=== PATIENT | male | born 1960 | race Caucasian/White ===

== ENCOUNTER 2020-10-19 07:42 | Outpatient (RCR) | payer OTHER, SELFPAY ==
--- NOTE | 2020-10-19 07:50 | PTOPEVAL ---
Thank you for referring Eze Tejada to [facility].? The patient is scheduled to be seen for therapy? ____x/week for ___ weeks. Please review, sign, date and return this plan of care KALYANI. I agree with and certify that the following plan of care is medically necessary. Referring Physician Date Admitting Provider: Attending Provider: Vivian Garcia MD Referring Provider: *PT Outpatient Evaluation Start: 10/19/20 06:49 Freq: Status: Active Protocol: Document 10/19/20 06:51 ACR (Rec: 10/19/20 07:47 ACR [id number]) Therapy Assessment Status Assessment Status Assessment Status Evaluation Evaluation Information Problem Diagnosis LBP Onset 10/14/20 Subjective Information Patient states his back pain Query Text:As Reported By Patient/ was gradually getting worse Family and noticed it was the worse when he crossed his legs. He states that he was doing a lot of driving that increased pain. He states the pain felt like a lightening bolt and if he extended or laid down it would feel better. Bending over aggravates the spot. He states the pain is right on the PSIS region. He states the doctor gave him a steriod that has significantly decreased the pain but he has some soreness at the PSIS. Patient states he has not had radicular pain. He states that twisting in the sitting position caused the most pain. Patient states that there is something in his back but it is a dull ache if anything. Prior Level of Function Activity Level (Last 3 Months) Occupation retired Hand Dominance Right Activity of Daily Living Ability Independent Indoor/Home Mobility Independent Community Mobility Independent Stairs Ability Independent Functional Cognition (Planning, Shopping Independent , Taking Medications) Cooking Yes Cleaning Yes Laundry Yes Shopping Yes Driving Yes Pain Assessment Timing of Pain Assessment Timing of Pain Assessment Assessment Pain Scale Pain Scale Used
--- NOTE | 2020-10-26 07:20 | PCPTNOTE ---
Patient presented to skilled therapy for evaluation for back pain. He called and stated that he was feeling great and would like to be discharged from therapy at this time. Please refer to patient's evaluation for discharge status. Thank you, Estrella Dixon, PT, DPT
== END 2020-10-19 15:43 | disposition home or self-care (01) ==
LOC: CHSPT 07:42
PROVIDERS: PCP Internal Medicine; Visit Provider Internal Medicine
DX: M54.5 Low back pain (principal)
CPT/HCPCS: 97014; 97110; 97161; G0283

== ENCOUNTER 2021-09-16 14:52 | Outpatient (CLI) | payer OTHER, SELFPAY ==
--- NOTE | ~2021-09-16 | XR_ITS ---
XR knee RT 3V 09/16/2021 15:12 Indication: Right anterior knee pain after fall Procedure: 3 views right knee Comparison: No prior studies for comparison. Findings: There is mild tricompartment osteoarthritis. No fracture, subluxation or dislocation. No camilo int effusion. No foreign bodies. Impression: 1: Mild osteoarthritis of the right knee. Reviewed, dictated and finalized at location [facility]. Impression: 1: Mild osteoarthritis of the right knee.
== END 2021-09-16 14:53 | disposition home or self-care (01) ==
LOC: CHSIMG 14:53
PROVIDERS: PCP Internal Medicine; Visit Provider Internal Medicine
DX: M25.561 Pain in right knee (principal)
CPT/HCPCS: 73562

== ENCOUNTER 2022-09-22 09:58 | Outpatient (CLI) | payer OTHER, SELFPAY ==
--- NOTE | ~2022-09-22 | XR_ITS ---
Thoracic spine: Clinical Indication: Neck pain AP and lateral views were performed. No fracture is seen. There is normal alignment of the vertebrae. The intervertebral disc spaces appe ar normal. Paravertebral soft tissues appear normal. Impression: No significant abnormalities noted. Reviewed, dictated and finalized at [facility]. Impression: No significant abnormalities noted.
== END 2022-09-22 09:59 | disposition home or self-care (01) ==
LOC: CHSLAB 10:01
PROVIDERS: PCP Internal Medicine; Visit Provider Internal Medicine
DX: M54.50 Low back pain, unspecified (principal)
CPT/HCPCS: 72072

== ENCOUNTER 2022-09-27 07:48 | Outpatient (RCR) | payer OTHER, SELFPAY ==
--- NOTE | 2022-09-27 08:00 | PTOPEVAL1 ---
Assessment and note entered by Sindi Alex DPT Evaluation Information Assessment Status Evaluation Diagnosis mid back pain Onset 09/22/22 Subjective Information Patient reports that he has had mid back pain for about 5 years. He reports about 3 weeks ago pain intensified. He reports he went to the Chriopractor and got instant relief. He then went to the MD who did an x-ray which was negative. He does not recall an injury but states for work he was doing a lot climbing and reaching over head ( retired now). Patient reports pain is worse in the mornings and the evenings and increased pain with lifting and standing. He reports relief with walking. Reported Pain Level Pain Score 3: Self Report Assessment PT Clinical Summary Patient is a 61 year old male who presents to PT with mid back pain. Patient demonstrates impaired posture, decreased mobility at the thoracic spine and decreased strength of the mid and upper traps impairing his ability to lift, stand for prolonged periods and sleep. He would benefit from skilled PT to address impairments and return to PLOF. Plan of Care PT Services Indicated Yes Treatment Frequency and 2x/weekly for 10 visits Duration These treatments will address the objective and functional deficits as defined above. The patient will be advanced safely and appropriately in order for the patient to progress towards his/her prior level of function. Additional exercises will be introduced and as well as a comprehensive home exercise program upon discharge, if needed, ?to ensure carryover of functional gains achieved in the clinic. This treatment plan has been reviewed and agreement upon by the patient.
== END 2022-09-27 16:22 | disposition home or self-care (01) ==
LOC: CHSPT 07:48
PROVIDERS: PCP Internal Medicine; Visit Provider Internal Medicine
DX: M54.6 Pain in thoracic spine (principal)
CPT/HCPCS: 97110; 97140; 97161

== ENCOUNTER 2023-07-20 00:19 | Day surgery (SDC) | payer BC, SELFPAY ==
[2023-07-03 15:27] VITALS: BMI 32.1
--- NOTE | 2023-07-18 10:52 | SUR.PREOP ---
Patient called regarding upcoming procedure. Reviewed preop instructions, appointment times, and procedure prep.
[2023-07-20] MEDS: LACTATED RINGERS 1,000 ML 150 ML IV CONT (07:19)
[2023-07-20 07:21] VITALS: BP 155/97; PULSE 93; RESP 18; TEMP 36.1; O2SAT 96
--- NOTE | 2023-07-20 08:20 | PM.IMHP ---
H&P: HPI History of Present Illness Date/Time: 07/20/23 08:20 Chief Complaint: screening for colorectal cancer Narrative: this is a 62-year-old man who presents for colonoscopy. His last colonoscopy was 11 years ago. He denies any hematochezia or melena. He denies any family history of colon cancer. Review of Systems Review of Systems: All systems reviewed & are unremarkable except as noted in HPI and below Constitutional: Constitutional: Denies chills, Denies fever(s), Denies headache(s) and Denies weight loss Eyes: Eyes: Denies change in vision ENT: Denies dizziness, Denies headache(s), Denies neck mass and Denies throat swelling Cardiovascular: Cardiovascular: Denies chest pain, Denies lightheadedness and Denies dyspnea Respiratory: Respiratory: Denies cough, Denies dyspnea and Denies wheezing Gastrointestinal: Gastrointestinal: Denies abdominal pain, Denies change in bowel habits, Denies nausea and Denies vomiting Genitourinary: Genitourinary: Denies hematuria and Denies dysuria Musculoskeletal: Musculoskeletal: Reports as per HPI Integumentary/Breasts: Skin/Breast: Reports as per HPI Neurologic: Denies dizziness and Denies headache(s) Allergic/Immunologic: Allergic/Immunologic: Denies throat swelling and Denies wheezing [facility] Family History Family History (System 06/22/22 @ 12:55 by Lyle Loo) Father Acute myocardial infarction Mother Family history of malignant neoplasm Social History Social History (System 06/22/22 @ 12:55 by Lyle Loo) Years smoked: 10 Smoking status: Former smoker Tobacco type: cigarettes Alcohol intake: current Substance use: never Substance use type: does not use Living arrangements: with family Spiritual care concerns: No Meds Home Medications and Allergies Home Medications Medication Instructions Recorded Confirmed Type aspirin 81 mg tablet,delayed 81 mg PO DAILY 07/03/23 07/03/23 History release lovastatin 20 mg tablet 20 mg PO DAILY 07/03/23 07/03/23 History nadolol 40 mg tablet 40 mg PO DAILY 07/03/23 07/20/23 History Allergies Allergy/AdvReac Type Severity Reaction Status Date / Time No Known Allergies Allergy Verified 07/20/23 06:58 Vital Signs Vital Signs - 24 hr 07/20/23 07:21 Temperature 36.1 C L Pulse Rate 93 Respiratory Rate 18 Blood Pressure 155/97 H Pulse Oximetry 96 Oxygen Delivery Room Air Exam Const: General: no acute distress and alert Orientation/consciousness: patient oriented x3 HENMT: Head: normocephalic and atraumatic Ears: hearing grossly normal bilaterally Face/Nose/Sinus: Normal nares present Mouth: Yes Normal oral and palatal mucosa present Eyes: Periorbital: periorbital findings normal Sclera: sclerae normal EOM: EOMs intact bilaterally Neck: Neck: normal visual inspection, no lymphadenopathy and trachea midline Chest: Chest palpation & inspection: normal inspection of the chest Resp: Effort & Inspection: normal respiratory effort Auscultation: clear to auscultation bilaterally Cardio: Jugular venous distension: no JVD Rate: regular rate Rhythm: regular rhythm Heart sounds: S1 normal heart sound present and S2 normal heart sound present Peripheral pulses: Peripheral pulses 2+ throughout GI: Inspection: normal to inspection GI Palp: Yes Soft to palpation, No Tenderness to palpation present (GI), No Guarding due to palpation present (GI) and No Rebound tenderness present Percussion: Yes normal to percussion Auscultation: normal bowel sounds : General: Yes no CVA tenderness Back/Spine/Pelvis: Back: no CVA tenderness Neuro: General: patient oriented x3, no focal motor deficits and CN's II-XI intact bilaterally Cognition (Neuro): normal cognition Speech: normal speech Motor exam (neuro): 5/5 motor strength present throughout Extrem: General: capillary refill normal and no clubbing, cyanosis or edema Assessment and Plan Assessment and plan (1) Screening for
--- NOTE | 2023-07-20 08:27 | P.PNAN_ITS ---
Anes - Initial Pre Proc Eval Procedure: Operation Date: 07/20/23 08:30 Proposed Procedures p Screening Colonoscopy - Luke Carey DO Date/Time: 07/20/23 08:27 Surgeon: Luke Carey DO Pre Op Diagnosis: neoplasm screening Patient Data Age: 62 Gender: M Height: 1.88 m Weight: 114.8 kg Last Vital Signs Temp 97 F L 07/20/23 07:21 Pulse 93 07/20/23 07:21 Resp 18 07/20/23 07:21 BP 155/97 H 07/20/23 07:21 Pulse Ox 96 07/20/23 07:21 O2 Del Method Room Air 07/20/23 07:21 Allergies Allergy/AdvReac Type Severity Reaction Status Date / Time No Known Allergies Allergy Verified 07/20/23 06:58 Home Medications Medication Instructions Recorded Confirmed Type aspirin 81 mg tablet,delayed 81 mg PO DAILY 07/03/23 07/03/23 History release lovastatin 20 mg tablet 20 mg PO DAILY 07/03/23 07/03/23 History nadolol 40 mg tablet 40 mg PO DAILY 07/03/23 07/20/23 History Patient hx anesthesia problems: none Family hx anesthesia problems: none Results Review: All pre-operative results and documents have been reviewed as part of the pre- operative evaluation. [facility] Family History Family History (System 06/22/22 @ 12:55 by Lyle Loo) Father Acute myocardial infarction Mother Family history of malignant neoplasm Social History Social History (System 06/22/22 @ 12:55 by Lyle Loo) Years smoked: 10 Smoking status: Former smoker Tobacco type: cigarettes Alcohol intake: current Substance use: never Substance use type: does not use Living arrangements: with family Spiritual care concerns: No Anes - Eval Final PreProcedure Day of Procedure 07/20/23 08:27 Patient weight: obese Heart: regular rate and rhythm Lungs: clear to auscultation Airway: Mallampati scale class II Neurological: alert and oriented Last oral intake: >/= 8 hours ASA classification: III Emergent: no Anesthetic plan: proceed Anesthesia type and monitoring: general GIVS and standard monitoring Results Review: All pre-operative results and documents have been reviewed as part of the pre- operative evaluation. Informed Consent: The patient's anesthetic plan and its attendant risks and benefits were discussed with the patient/family/POA. Questions were solicited and answers provided to the satisfaction of the patient/family/POA.
[2023-07-20 09:23] VITALS: BP 99/64; PULSE 78; RESP 20; O2SAT 95
[2023-07-20 09:33] VITALS: BP 123/82; PULSE 83; RESP 23; O2SAT 96
[2023-07-20 09:43] VITALS: BP 118/81; PULSE 77; RESP 22; O2SAT 95
== END 2023-07-20 10:04 | disposition home or self-care (01) ==
PROVIDERS: PCP Internal Medicine; Visit Provider Surgery
PROC: 0DJD8ZZ Inspection of Lower Intestinal Tract, Via Natural or Artificial Opening Endoscopic (ICD-10-PCS; CPT 45378; principal; 2023-07-20 08:30)
DX: Z12.11 Encounter for screening for malignant neoplasm of colon (principal); D12.3 Benign neoplasm of transverse colon; E66.9 Obesity, unspecified; Z68.32 Body mass index [BMI] 32.0-32.9, adult; Z79.82 Long term (current) use of aspirin; Z87.891 Personal history of nicotine dependence; Z82.49 Family history of ischemic heart disease and other diseases of the circulatory system; Z80.9 Family history of malignant neoplasm, unspecified
CPT/HCPCS: 45380; 88305; J2001; J2704; J7120

== ENCOUNTER 2024-04-01 23:53 | Emergency (ER) | payer BC, SELFPAY ==
[2024-04-01 23:56] VITALS: BP 169/98; PULSE 83; RESP 16; TEMP 36.7; O2SAT 96
--- NOTE | 2024-04-02 00:11 | ED.EYEPROB ---
HPI - Eye Problem General Chief complaint: Eye Problems Stated complaint: left eye injury Time Seen by Provider: 04/02/24 00:10 Source: patient Mode of arrival: ambulatory Limitations: no limitations History of Present Illness HPI Narrative: 63 old white male noticed sudden appearance of flash of light at the lateral side of left visual field started around 3 p.m. questions about 9-10 hours ago. Worse at dark, mainly if he moves his eyes to 1 side. Patient described the flash of light like glips of crescent aggarwal. Patient denies any fever, chills, nausea, vomiting, headache, eye discharge , eye blinking or light sensitivity or redness or foreign body like sensation or blurry vision or floaters. 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 History of hypertension, hyperlipidemia currently on baby aspirin once a day, patient wearing glasses for long and short distance. Related Data Home Medications Medication Instructions Recorded Confirmed aspirin 81 mg tablet,delayed 81 mg PO DAILY 07/03/23 04/01/24 release lovastatin 20 mg tablet 20 mg PO DAILY 07/03/23 04/01/24 nadolol 40 mg tablet 40 mg PO DAILY 07/03/23 04/01/24 Allergies Allergy/AdvReac Type Severity Reaction Status Date / Time No Known Allergies Allergy Verified 07/20/23 06:58 Review of Systems Review of Systems: All systems reviewed & are unremarkable except as noted in HPI and below PMFSH Family History Family History Father Acute myocardial infarction Mother Family history of malignant neoplasm Social History Social History Years smoked: 10 Smoking status: Former smoker Tobacco type: cigarettes Alcohol intake: current Substance use: never Substance use type: does not use Living arrangements: with family Spiritual care concerns: No Exam Narrative: General appearance: Well-developed, well-nourished Skin: Normal color Head: Normocephalic, nontraumatic Eyes: Clear conjunctiva , no foreign body in the cornea or under the upper eyelid Neck: Supple, nontender Chest and respiratory: Airway patent, no respiratory distress, no accessory muscle use Heart: Regular rate/rhythm Neurologic: Alert and oriented ?3, FOUNTAIN PEN NIBS INSPECTOR is normal as tested, no gross motor deficit Course Consultations Consultation #1: DR SEAMAN , THE ACCOUNTING CLERK ON-CALL WHO REQUESTED TO SEND PATIENT TO THE ED Date: 04/02/24 Time: 01:31 Consultation #2: DR. JULIAN PINA ED PHYSICIAN AT [facility] WHO ACCEPTED PATIENT TO BE TRANSFERRED WHEN A BED AVAILABLE. Date: 04/02/24 Time: 01:31 Vital Signs Vital signs: Vital Signs Temperature 36.7 C 04/01/24 23:56 Pulse Rate 83 04/01/24 23:56 Respiratory Rate 16 04/01/24 23:56 Blood Pressure 169/98 H 04/01/24 23:56 Pulse Oximetry 96 04/01/24 23:56 Oxygen Delivery Room Air 04/01/24 23:56 Temperature 36.7 C 04/01/24 23:56 Pulse Rate 83 04/01/24 23:56 Respiratory Rate 16 04/01/24 23:56 Blood Pressure 169/98 H 04/01/24 23:56 Pulse Oximetry 96 04/01/24 23:56 Oxygen Delivery Room Air 04/01/24 23:56 Transfer Transfered to: [facility] MDM - Eye Problem MDM Narrative Medical decision making narrative: flash flight to left eye Differential diagnosis retinal tear or detachment Physical examination is unremarkable, visual acuity 20 /20 right, 20 /25 left, 20 /20 both Patient was accepted to be transferred to [facility]. Critical Care Time Critical Care Time
--- NOTE | 2024-04-02 01:20 | PC.NURSE ---
ERP spoke to pt about opthalmologist accepting him at [facility] but at this time they have no rooms in their ER. Discussed options for transfer w/ pt. and he has decided to stay here until a bed opens for him to go to [facility] ER.
[2024-04-02 01:45] VITALS: BP 142/97; PULSE 70; RESP 18; O2SAT 98
--- NOTE | 2024-04-02 01:46 | PC.NURSE ---
Lights dimmed, pt given warm blankets to rest until call received from [facility] for transfer. Call duenas at pt side.
--- NOTE | 2024-04-02 03:10 | PC.NURSE ---
Called Dr Bang and informed him about [facility] waitlist for pt and unable to accept at this time due to capacity. Advised to call other facilities for opthalmology transfer. Will try [facility].
--- NOTE | 2024-04-02 04:18 | PC.NURSE ---
Pt ambulatory to [facility] per self, no changes in vision noted at this time. Updated pt about transfer acceptance to ER at [facility], paperwork signed and EMS called.
[2024-04-02 04:20] VITALS: BP 148/88; PULSE 74; RESP 18; TEMP 36.6; O2SAT 96
[2024-04-02 04:50] VITALS: BP 146/88; PULSE 78; RESP 18; TEMP 36.6; O2SAT 98
== END 2024-04-02 04:50 | disposition short-term general hospital (02) ==
PROVIDERS: Emergency Provider Emergency Medicine; PCP Internal Medicine
DX: H53.19 Other subjective visual disturbances (principal); I10 Essential (primary) hypertension; E78.5 Hyperlipidemia, unspecified; Z79.82 Long term (current) use of aspirin; Z79.899 Other long term (current) drug therapy; Z87.891 Personal history of nicotine dependence
CPT/HCPCS: 99285

== ENCOUNTER 2024-05-28 13:36 | Outpatient (CLI) | payer BC, SELFPAY ==
--- NOTE | ~2024-05-28 | XR_ITS ---
Right Knee Technique: AP and lateral views were obtained. Clinical History: Pain Findings: No fracture or dislocation is seen. Osseous alignment is anatomic. Minimal degenerative spu rring noted, especially the patella and intercondylar notch. Soft tissues are unremarkable. No joint effusion is seen. Impression: Minimal degenerative spurring Reviewed, dictated and finalized at [facility]. ORK RELATIONS CONSULTANT Impression: Minimal degenerative spurring
== END 2024-05-28 13:37 | disposition home or self-care (01) ==
PROVIDERS: PCP Internal Medicine; Visit Provider Nurse Practitioner Family
DX: M25.561 Pain in right knee (principal)
CPT/HCPCS: 73562

== ENCOUNTER 2024-06-27 07:17 | Outpatient (CLI) | payer BC, SELFPAY ==
--- NOTE | ~2024-06-27 | MR_ITS ---
EXAMINATION: MR knee RT wo con DATE: 06/27/2024 08:19 INDICATION: Right knee pain TECHNIQUE: Magnetic resonance imaging (MRI) of the right knee was performed without intravenous contr ast. Sequences included coronal PD-weighted FSE, coronal PD-weighted FS FSE, sagittal T2-weighted FS E, sagittal PD-weighted FS FSE and axial PD weighted fat saturated FSE. COMPARISON: Right knee radiographs dated 05/28/2024 FINDINGS: Medial compartment: Complex medial meniscal tear with longitudinal horizontal tear plane extending to the inferior articu lar surface of the body and posterior horn. Additional radial component of the tear middle finger two thirds of the posterior horn. Small multilobulated para meniscal cyst along the periphery of the pos terior horn. Partial-thickness chondral ulceration and fissuring which appears to involve at least 50 % the cartilage thickness but without degenerative subchondral changes along the anterior weightbeari ng medial femoral condyle. Additional partial-thickness chondral ulceration and deep fissuring with t iny focus of subarticular edema-like signal change at the anterior and posterior margins of the media l tibial plateau. Lateral compartment: Longitudinal horizontal tear extending to the inferior articular surface near the free edge of the apurva dy of the lateral meniscus. Partial-thickness chondral ulceration and fissuring without degenerative subchondral changes at the posterior aspect lateral tibial plateau. Additional juxtaposed deep chondr al ulceration with underlying tiny central subchondral osteophyte at the central weightbearing latera l femoral condyle. Patellofemoral compartment: Thickness chondral ulceration without degenerative subchondral changes at the medial patellar facet. Small partial-thickness chondral fissure also without degenerative subchondral changes at the lateral patellar facet. Deep chondral ulceration with tiny foci of subarticular edema-like signal change at the inferior aspect of the medial trochlea and trochlear groove. Ligaments and tendons: Anterior and posterior cruciate ligaments are normal. The medial collateral ligament and fibular ricardo ateral ligament complex are normal. Mild tendinopathy at the proximal patellar tendon. Quadriceps ten don is normal. The visualized medial and lateral hamstring tendons as well as the iliotibial band are normal. Fluid: Minimal knee joint effusion. No loose osteochondral bodies identified. Osseous/other: Bone alignment is normal. No fracture or pathologic marrow replacing process. IMPRESSION: 1. Medial and lateral meniscal tears. 2. Mild osteoarthritis with regions of moderate and high-grade chondromalacia in all 3 compartments. Reviewed, dictated and finalized at location [facility]. WEB SERVICES DEVELOPER IMPRESSION: 1. Medial and lateral meniscal tears. 2. Mild osteoarthritis with regions of moderate and high-grade chondromalacia i n all 3 compartments.
== END 2024-06-27 07:18 | disposition home or self-care (01) ==
LOC: CHSIMG 07:20
PROVIDERS: PCP Internal Medicine; Visit Provider Nurse Practitioner Family
DX: M25.561 Pain in right knee (principal); S83.281A Other tear of lateral meniscus, current injury, right knee, initial encounter; S83.241A Other tear of medial meniscus, current injury, right knee, initial encounter; M17.11 Unilateral primary osteoarthritis, right knee; M94.261 Chondromalacia, right knee
CPT/HCPCS: 73721

== ENCOUNTER 2024-10-19 22:39 | Emergency (ER) | payer BC, SELFPAY ==
[2024-10-19 22:42] VITALS: BP 157/98; PULSE 76; RESP 18; TEMP 36.3; O2SAT 97
--- OUTSIDE RECORDS SUMMARY | 2024-10-19 22:42 | XMS_ITS | Referral Summary ---
Author Organization [facility] Address [address] [place] [address] Care Team Providers Care Leather Sprayer Name Role Phone Vivian Garcia MD Primary Care Provider + [phone] Allergies No known active allergies Medications No known medications Active Problems Problem Noted Date Diagnosed Date Posterior vitreous detachment of left eye 2023 Overview (04/10/2024): 63 y.o. male with PMHx of HTN and OHx of rust ring years ago, dry eyes, and myopia who presents as OSH ED transfer for flashes OS on 04/02/24. 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 Also with cortical spoking OS, though reporting flashes present even with eyes closed more c/w PVD. 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 Reviewed return precautions for flashes/floaters/VF cuts. RTC as below, if stable at next visit, may be able to return to follow-up with eye care provider he previously followed with at [facility] Social History Tobacco Use Types Packs/Day Years Used Date Smoking Tobacco: Never Assessed Personal Safety Answer Date Recorded Have you ever been in or are you currently in a harmful physical or emotional relationship or is someone making you feel afraid or unsafe? 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 Gender Identity Not on file Sexual Orientation Not on file Last Filed Vital Signs Vital Sign Reading Time Taken Comments Blood Pressure 137/74 04/02/2024 1:11 PM CDT Pulse 66 04/02/2024 1:11 PM CDT Temperature 37 C (98.6 F) 04/02/2024 1:11 PM CDT Respiratory Rate 16 04/02/2024 1:11 PM CDT Oxygen Saturation 99% 04/02/2024 1:11 PM CDT Inhaled Oxygen Concentration - - Weight 136.1 kg (300 lb) 04/02/2024 6:36 AM CDT Height - - Body Mass Index - - Plan of Treatment Not on file [place] Care Teams Leather Sprayer Relationship Specialty Start Date End Date Vivian Garcia MD [address] [place] [address] PCP - General Internal Medicine 04/02/24
--- OUTSIDE RECORDS SUMMARY | 2024-10-19 22:42 | XMS_ITS | Clinical Summary ---
Author Organization [facility] Address [address] [place] [address] Care Team Providers Care Nail Making Machine Setter Name Role Phone Vivian Garcia MD Primary Care Provider [phone] Luke Cuevas MD Unavailable [phone] Allergies No known active allergies Medications aspirin 81 MG tablet Take 1 tablet by mouth daily. 10/11/2010 Active lovastatin 20 MG tablet 09/27/2017 Active nadolol 40 MG tablet 10/09/2017 Active sildenafil 100 MG tablet 08/29/2017 Active Active Problems Problem Noted Date Diagnosed Date Palpitations 10/20/2017 PAC (premature atrial contraction) 10/20/2017 Family History Medical History Relation Comments [place] Father Relation Status Comments Father Social History Tobacco Use Types Packs/Day Years Used Date Smoking Tobacco: Former Smokeless Tobacco: Never Alcohol Use Standard Drinks/Week Comments No 0 (1 standard drink = 0.6 oz pur e alcohol) Sex and Gender Information Value Date Recorded Sex Assigned at Not on file Legal Sex Male 9:59 PM CDT Gender Identity Not on file Sexual Orientation Not on file Last Filed Vital Signs Vital Sign Reading Time Taken Comments Blood Pressure 118/78 12/04/2017 10:09 AM CDT Pulse 71 12/04/2017 10:09 AM CDT Temperature - - Respiratory Rate 18 12/04/2017 10:09 AM CDT Oxygen Saturation - - Inhaled Oxygen Concentration - - Weight 117 kg (258 lb) 12/04/2017 10:09 AM CDT Height 185.4 cm (6' 1 ) 12/04/2017 10:09 AM CDT Body Mass Index 34.04 12/04/2017 10:09 AM CDT Plan of Treatment Health Maintenance Due Date Last Done Comments Colorectal Cancer Screening Colonoscopy (10 Years) 1960 Annual Physical 12/24/1963 Hepatitis C 1978 DTaP, Tdap and Td Vaccines ( 1 - Tdap) 12/24/1979 Pneumococcal Vaccine: 50+ Ye ars (1 of 1 - PCV) 2010 Zoster Vaccines (1 of 2) 2010 COVID-19 Vaccine (1 - 2023-2 5 season) 2024 RSV Immunization or 60+ Years (1 - 1-dose 75+ series) 12/24/2035 Meningococcal B Vaccine Aged Out No l onger eligible based on patient's age to complete this topic Meningococcal Vaccine Aged Out No uma diana eligible based on patient's age to complete this topic RSV Immunizations Under 20 Months Aged Out No longer eligible based on patient's age to complete this topic Insurance AETNA AETNA Care Teams Nail Making Machine Setter Relationship Specialty Start Date End Date Vivian Garcia MD [address] [place] [id number] PCP - General INTERNAL MEDICINE 09/12/17 Luke Cuevas MD [address] [facility] [address] [id number] EP Seal Mixing Operator CLINICAL CARDIAC ELECTROPHYSIOLOGY 09/12/17
--- OUTSIDE RECORDS SUMMARY | 2024-10-19 22:42 | XMS_ITS | Clinical Summary ---
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 Reviewed return precautions for flashes/floaters/VF cuts. RTC as below, if stable at next visit, may be able to return to follow-up with eye care provider he previously followed with at [facility] Social History Tobacco Use Types Packs/Day Years Used Date Smoking Tobacco: Never Assessed Personal Safety Answer Date Recorded Have you ever been in or are you currently in a harmful physical or emotional relationship or is someone making you feel afraid or unsafe? 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 Gender Identity Not on file Sexual Orientation Not on file Obstetrics History Last Filed Vital Signs Vital Sign Reading [...] Mass Index - - Plan of Treatment Health Maintenance Due Date Last Done Comments Colon Cancer Screening-Colonoscopy 1960 Depression Screening 1960 Hepatitis C Screening 1960 Prostate Cancer Screening-PSA 1960 Hepatitis B Screening 1978 Regular Well Visit/Exam 18-64 1978 Covid-19 Vaccine ( season) 2024 06/02/2022, 06/30/2021, 10/02/2020, Additional history exists Influenza Vaccine (#1) 2024 , 03/11/2020, 04/20/2018, Additional history exists DTaP/Tdap/Td Vaccine (3 - Td or Tdap) 10/29/2033 10/30/2023, 07/16/2013 Pneumococcal vaccine <65 Aged Out 01/09/2019 No longer eligible based on patient's age to complete this topic Zoster Vaccine Completed 2019, 08/26/2019 [place] Care Teams Mechanical Car Checker Relationship Specialty Start Date End Date Vivian Garcia MD [address] [place] [address] PCP - General Internal Medicine 04/02/24
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
== END 2024-10-19 23:12 | disposition home or self-care (01) ==
PROVIDERS: Emergency Provider Emergency Medicine; PCP Internal Medicine
DX: T14.8XXA Other injury of unspecified body region, initial encounter (principal); E78.5 Hyperlipidemia, unspecified; Z87.891 Personal history of nicotine dependence; W22.8XXA Striking against or struck by other objects, initial encounter
CPT/HCPCS: 99282